=== PATIENT | female | born 1950 | race Hispanic/Latino ===

== ENCOUNTER 2021-10-02 09:57 | Emergency (ER) | payer OTHER ==
--- OUTSIDE RECORDS SUMMARY | 2021-10-02 10:02 | XMS REPORT | Continuity of Care Document ---
:1950 Author Organization [facility] t Address [address] [place] [address] Care Team Providers Name Role Phone WATTS Attending Clinician Unavailable ARTI Attending Clinician Unavailable TOMY Attending Clinician Unavailable CYNDI Attending Clinician Unavailable MD SAMMY HANNA Attending Clinician Unavailable KNOW Admitting Clinician Unavailable CYNDI Admitting Clinician Unavailable MD SAMMY HANNA Admitting Clinician Unavailable Payers Payer Name Policy Type Policy Number Effective Date Expiration Date S ource Problems This patient has no known problems. Allergies, Adverse Reactions, Alerts Allergy Allergy Status Severity Reaction(s) Onset Inactive Treating Comm ents Source Name Type Date Date Clinician codeine DA Active [place] VOMITING 2016- [facility] 7-24 Clear 00:00: Espinoza 00 [facility] lactose FA Active [place] STOMACH [facility] PAINS 7-24 Clear 00:00: Espinoza 00 [facility] ragweed DA Active [facility] SWELLING [facility] pollen 7-24 Clear 00:00: Espinoza 00 [facility] codeine DA Active SV 2016- [facility] 7-24 Clear 00:00: Espinoza 00 [facility] lactose FA Active [place] 2016- [facility] 7-24 Clear 00:00: Espinoza 00 [facility] ragweed DA Active SV [facility] pollen 7-24 Clear 00:00: Espinoza 00 [facility] Medications This patient has no known medications. Procedures This patient has no known procedures. Encounters Start End Encounter Admission Attending Care Care Encounter Source Date/Time Date/Time Type Type Clinicians Facility Department ID 2020-06-16 Inpatient [facility] FABIAN [id number] [facility] 11:28:00 [id number] [facility] 2020-11-10 2020-11-10 Outpatient [facility] [id number] 00:00:00 00:00:[address] 2020-11-10 2020-11-10 Outpatient STEFANIE, [facility] [id number] 00:00:00 00:00:00 TED [address] 2020-11-08 2020-11-08 Outpatient ARTI, [facility] [id number] 00:00:00 00:00:00 HERNESTO [address] 2020-10-12 2020-10-12 Outpatient STEFANIE, [facility] [id number] 00:00:00 00:00:00 TED [address] 2020-10-05 2020-10-05 Emergency TMOY, [facility] 064 [id number] 00:00:00 00:00:00 ARPIT-JOSE RAUL [address] 2020-09-30 2020-10-01 Outpatient HANNA, [facility] [id number] 00:00:00 00:00:00 AMITKUMAR 604 [facility] 2020-09-27 2020-09-27 Outpatient [facility] [id number] 00:00:00 00:00:[address] 2020-09-01 2020-09-01 Outpatient ARTI, [facility] [id number] 00:00:00 00:00:00 HERNESTO [address] 2020-08-31 2020-08-31 Outpatient ARTI, [facility] [id number] 00:00:00 00:00:00 HERNESTO [address] 2020-08-30 2020-08-30 Outpatient ARTI, [facility] [id number] 00:00:00 00:00:00 HERNESTO [address] 2020-05-31 2020-05-31 Outpatient [facility] [id number] 00:00:00 00:00:[address] 2020-05-10 2020-05-10 Outpatient [facility] [id number] 00:00:00 00:00:[address] Results Test Description Test Time Test Comments Results Result Comments Source SARS-CoV-2 (COVID-19) RNA [Presence] in Respiratory sp ecimen by 2020-09-30 12:34:46 [facility] with probe detection Test Item Value Reference Range Interpretation Comme nts SARS-CoV-2 (COVID-19) RNA [Presence] in Respiratory Not detected No t-Detected specimen by [facility] with probe detection (test code = 39632-4) Whether patient is employed in a healthcare setting (test code = 43278-9) Whether the patient has symptoms related to condition of interest (test code = 47822-4) Patient was hospitalized because of this condition (test code = 35977-3) Whether the patient was admitted to intensive care unit (ICU) for condition of interest (test code = 44525-9) Whether patient resides in a congregate care setting (test code = 73238-2)
--- NOTE | 2021-10-02 11:48 | RAD REPORT ---
EXAM DESCRIPTION: RAD - Ankle Right 3 View - 10/02/2021 11:31 am CLINICAL HISTORY: Right ankle pain FINDINGS: No fracture or dislocation is seen.
--- NOTE | 2021-10-02 11:48 | RAD REPORT ---
EXAM DESCRIPTION: RAD - Foot Right 3 View - 10/02/2021 11:31 am CLINICAL HISTORY: Right foot pain FINDINGS: No fracture or dislocation is seen
--- NOTE | 2021-10-02 12:23 | ER ---
Nurse's Notes [facility] Name: Cathy Tripp Age: 71 yrs Sex: Female : 1950 Arrival Date: 10/02/2021 Time: 10:05 Bed DIS1 Private MD: Diagnosis: Contusion of right foot Presentation: 10/02 11:02 Chief complaint: Patient states: Fell on Saturday09/30/21, stated "I was in an vg1 auditorium and it was dark and I took a step and didn't see a ladder and fell forward. Stated "I have a bruise on my Left knee and right thigh and I cant put any weight on my Right ankle". Coronavirus screen: Vaccine status: Patient reports receiving the 2nd dose of the covid vaccine. Client denies travel out of the [place] in the last 14 days. Ebola Screen: Patient denies exposure to infectious person. Patient denies travel to an Ebola-affected area in the 21 days before illness onset. Initial Sepsis Screen: Does the patient meet any 2 criteria? No. Patient's initial sepsis screen is negative. Does the patient have a suspected source of infection? No. Patient's initial sepsis screen is negative. Risk Assessment: Do you want to hurt yourself or someone else? Patient reports no desire to harm self or others. Onset of symptoms was September 30, 2021. 11:02 Method Of Arrival: Wheelchair vg1 11:02 Acuity: ABDI 4 vg1 Triage Assessment: 11:07 General: Appears uncomfortable, Behavior is calm, cooperative. Pain: Complains of pain vg1 in right ankle Pain currently is 9 out of 10 on a pain scale. Musculoskeletal: Range of motion: limited in right ankle. Historical: - Allergies: 11:07 Codeine; vg1 - PMHx: 11:07 Hypertensive disorder; vg1 - PSHx: 11:07 section; Cholecystectomy; vg1 - Immunization history:: Client reports receiving the 2nd dose of the Covid vaccine. - Social history:: Smoking status: Patient denies any tobacco usage or history of. - Family history:: not pertinent. - Hospitalizations: : No recent hospitalization is reported. Screenin:36 Abuse screen: Denies threats or abuse. Denies injuries from another. Nutritional ss screening: No deficits noted. Tuberculosis screening: Never had TB. Fall Risk None identified. Assessment: 13:36 General: Appears in no apparent distress. comfortable, Behavior is calm, cooperative. ss Pain: Complains of pain in right ankle Pain currently is 9 out of 10 on a pain scale. Quality of pain is described as tender, Is continuous. Neuro: Evans Agitation-Sedation Scale (RASS): 0 - Alert and Calm Level of Consciousness is awake, alert, obeys commands. Respiratory: Airway is patent Respiratory effort is even, unlabored, Respiratory pattern is regular, symmetrical. Derm: Skin is intact, is healthy with good turgor, Skin is pink, warm \\T\\ dry. normal. Musculoskeletal: Circulation, motion, and sensation intact. Range of motion: intact in all extremities, Swelling absent. Vital Signs: 11:02 BP 144 / 81; Pulse 73; Resp 16; Temp 98.6(O); Pulse Ox 100% on R/A; Weight 79.38 kg; vg1 Height 5 ft. 2 in. (157.48 cm); Pain 9/10; 11:02 Body Mass Index 32.01 (79.38 kg, 157.48 cm) vg1 ED Course: 10:05 Patient arrived in ED. rg4 11:02 Ayden Kaur MD is Attending Physician. rn 11:06 Triage completed. vg1 11:07 Arm band placed on. vg1 11:27 Ankle Right 3 View XRAY In Process Unspecified. EDMS 11:27 Foot Right 3 View XRAY In Process Unspecified. EDMS 13:15 Dee Castillo, GARY is Primary Nurse. ss 13:36 Patient has correct armband on for positive identification. ss 13:36 No provider procedures requiring assistance completed. Patient did not have IV access ss during this emergency room visit. 3D boot applied to left foot. Administered Medications: No medications were administered Medication: 13:36 VIS not applicable for this client. ss Outcome: 12:22 Discharge ordered by . rn 13:36 Discharged to home ambulatory. ss 13:36 Condition: good 13:36 Discharge instructions given to patient, Instructed on discharge instructions, follow up and referral plans. Demonstrated understanding of instructions, follow-up care. 13:38 Patient left the ED. ss Signatures: Dispatcher [employer] EDMS Ayden Kaur MD MD rn Smirch, Shelby, RN RN [place] rg4 Abhinav, Mei, RN RN vg1
--- NOTE | 2021-10-02 12:23 | EDPHYS ---
Physician Documentation [facility] Name: Cathy Tripp Age: 71 yrs Sex: Female : 1950 Arrival Date: 10/02/2021 Time: 10:05 Bed DIS1 Private MD: ED Physician Ayden Kaur HPI: 10/02 12:18 This 71 yrs old Female presents to ER via Wheelchair with complaints of Fall rn Injury, Leg Pain. 12:18 Details of fall: The patient fell from an upright position. Onset: The symptoms/episode rn began/occurred 2 day(s) ago. Associated injuries: The patient sustained right ankle and foot. Severity of symptoms: At their worst the symptoms were moderate, in the emergency department the symptoms are unchanged. The patient has not experienced similar symptoms in the past. The patient has not recently seen a physician. Pt reports missed a step, in auditorium, fell down, hit knees and right foot, knees are better but ankle and foot hurt still and wants to make sure didn't break anything.. Historical: - Allergies: 11:07 Codeine; vg1 - PMHx: 11:07 Hypertensive disorder; vg1 - PSHx: 11:07 section; Cholecystectomy; vg1 - Immunization history:: Client reports receiving the 2nd dose of the Covid vaccine. - Social history:: Smoking status: Patient denies any tobacco usage or history of. - Family history:: not pertinent. - Hospitalizations: : No recent hospitalization is reported. ROS: 12:18 Constitutional: Negative for fever, chills, and weight loss, MS/Extremity: + right foot rn and ankle pain/injury Skin: + bruising Exam: 12:18 Constitutional: This is a well developed, well nourished patient who is awake, alert, rn and in no acute distress. Skin: NO open wound or laceration MS/ Extremity: Pulses equal, no cyanosis. Neurovascular intact. Full, normal range of motion. Equal circumference. + mild tenderness right calcaneus, no other focal bony tenderness, + mild swelling at midfoot and ankle. No proximal tib/fib tenderness. + left knee with ecchymosis. Vital Signs: 11:02 BP 144 / 81; Pulse 73; Resp 16; Temp 98.6(O); Pulse Ox 100% on R/A; Weight 79.38 kg; vg1 Height 5 ft. 2 in. (157.48 cm); Pain 9; 11:02 Body Mass Index 32.01 (79.38 kg, 157.48 cm) vg1 MDM: 11:02 Patient medically screened. rn 12:18 Differential diagnosis: contusion, fracture, sprain, strain. Data reviewed: vital rn signs, nurses notes, radiologic studies, plain films, and as a result, I will discharge patient. Counseling: I had a detailed discussion with the patient and/or guardian regarding: the historical points, exam findings, and any diagnostic results supporting the discharge/admit diagnosis, radiology results, the need for outpatient follow up, to return to the emergency department if symptoms worsen or persist or if there are any questions or concerns that arise at home. Special discussion: I discussed with the patient/guardian in detail that at this point there is no indication for admission to the hospital. It is understood, however, that if the symptoms persist or worsen the patient needs to return immediately for re-evaluation. Further emergent ED testing is not indicated at this point in time. I discussed with the patient/guardian in detail the need to arrange with the PCP or specialist further outpatient testing, MRI, Based on the history and exam findings, there is no indication for further emergent testing or inpatient evaluation. I discussed with the patient/guardian the need to see the orthopedic surgeon for further evaluation of the symptoms. 10/02 11:10 Order name: Ankle Right 3 View XRAY; Complete Time: 12:10 [facility] 10/02 11:10 Order name: Foot Right 3 View XRAY; Complete Time: 12:10 [facility] 10/02 12:23 Order name: Walking boot; Complete Time: 13:15 rn Administered Medications: No medications were administered Disposition Summary: 10/02/21 12:22 Discharge Ordered Location: Home rn Problem: new rn Symptoms: have improved rn Condition: Stable rn Diagnosis - Contusion of right foot rn Followup: rn - With: Private Physician - When: As needed - Reason: Recheck today's complaints, Re-evaluation by your physician Discharge Instructions: - Discharge Summary Sheet rn - Foot Contusion rn Forms: - Medication Reconciliation Form rn - Thank You Letter rn - Antibiotic phd intern - Prescription Opioid Use rn Signatures: Dispatcher [employer] EDMS Kaur, Ayden, MD MD rn Abhinav, Mei, RN RN vg1
[2021-10-02 13:44] VITALS: BP 144/81; TEMP 98.6; O2SAT 100
== END 2021-10-02 13:38 | disposition home or self-care (01) ==
LOC: ER 09:57
DX: S90.31XA Contusion of right foot, initial encounter (principal); W01.0XXA Fall on same level from slipping, tripping and stumbling without subsequent striking against object, initial encounter; Y93.89 Activity, other specified; Y92.9 Unspecified place or not applicable; Z88.6 Allergy status to analgesic agent; I10 Essential (primary) hypertension
CPT/HCPCS: 99283